=== PATIENT | female | born 1980 | race Caucasian/White ===

== ENCOUNTER 2023-11-08 19:48 | Emergency (ER) | payer SELFPAY ==
[~2023-11-08] VITALS: Ht 170.2 cm; Wt 80.0 kg
[2023-11-08 19:59] VITALS: O2SAT 100
[2023-11-08] MEDS ORDERED: ACETAMINOPHEN 325MG TABLET PO ONE (20:45)
[2023-11-08] MEDS ORDERED: KETOROLAC 60MG/2ML VIAL IM NR (20:45)
[2023-11-08] MEDS ORDERED: KETOROLAC 60MG/2ML VIAL IM ONE (20:45)
[2023-11-08] MEDS: ACETAMINOPHEN 325MG TABLET PO NR (22:05)
[2023-11-08] MEDS: KETOROLAC 30MG/ML VIAL IM NR (22:06)
[2023-11-08 23:22] VITALS: BP 116/66; PULSE 88; RESP 18; TEMP 97.5
== END 2023-11-08 23:24 | disposition home or self-care (01) ==
LOC: ER 19:48
DX: M54.2 Cervicalgia (principal); F19.90 Other psychoactive substance use, unspecified, uncomplicated
CPT/HCPCS: 99284; 73502; 73560; 96372; J1885